=== PATIENT | female | born 1995 | race Caucasian/White ===

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

== ENCOUNTER 2017-06-22 02:50 | Emergency (ER) | END 2017-06-22 05:00 | disposition home or self-care (01) ==

== ENCOUNTER 2017-12-16 13:43 | Emergency (ER) | END 2017-12-16 16:23 | disposition home or self-care (01) ==